=== PATIENT | female | born 1950 | race Caucasian/White ===

== ENCOUNTER 2022-06-01 20:56 | Emergency (ER) | payer SELFPAY ==
[~2022-06-01] VITALS: Ht 167.6 cm; Wt 68.0 kg
--- NOTE | 2022-06-01 21:10 | NUR ---
TO ER BED 3. [id number]. FROM HOME FOR GLF HIT BACK OF HEAD, REPORTED UNKNOWN [place]. PT IS ALERT. CONNECTED TO MONITOR. RR EVEN AND NONLABORED. SAFETY PRECAUTIONS IN PLACE. AWAITING MD REYES
--- NOTE | 2022-06-01 21:58 | NUR ---
PROVIDED PT WITH WARM BLANKET FOR COMFORT
--- NOTE | 2022-06-01 22:27 | NUR ---
Patient discharged to home in stable condition. Written and verbal after care instructions given. Patient verbalizes understanding of instruction.
[2022-06-01 22:43] VITALS: BP 118/61
== END 2022-06-01 22:43 | disposition home or self-care (01) ==
LOC: ER 21:02
DX: S09.90XA Unspecified injury of head, initial encounter (principal); F10.129 Alcohol abuse with intoxication, unspecified; I10 Essential (primary) hypertension; W19.XXXA Unspecified fall, initial encounter; Y93.89 Activity, other specified; Y92.89 Other specified places as the place of occurrence of the external cause; Y99.8 Other external cause status; Y90.9 Presence of alcohol in blood, level not specified
CPT/HCPCS: 70450-TC; 72125-TC